=== PATIENT | female | born 1980 | race Caucasian/White ===

== ENCOUNTER 2017-10-08 11:58 | Emergency (ER) | payer MEDICAID, OTHER ==
[~2017-10-08] VITALS: Ht 152.4 cm; Wt 63.6 kg
[~2017-10-08 11:58] MED LIST: ESOM40CA PO; FLO0.4C PO; IBUP-1984 PO; MAGN400T6 PO; NORCO10T PO; ONDA4TAB59 PO; ONDA4TAB6 PO; ONDA4TAB9 PO; PREN-139 PO
[2017-10-08] MEDS ORDERED: ketorolac trometh. 30mg/ml inj. IV ONE (12:30)
[2017-10-08 12:37] LABS: BASOPHILS % (AUTO) 0.2 % (0-1); EOSINOPHILS # (AUTO) 0.3 X10'3 (0-0.9); EOSINOPHILS % (AUTO) 2.2 % (0-6); HEMATOCRIT 36.8 % (35.0-45.0); HEMOGLOBIN 12.8 g/dl (12.0-16.0); LYMPHOCYTES # (AUTO) 1.7 X10'3 (1.1-4.8); MEAN CORPUSCULAR HGB CONC 34.9 % (33.0-36.5); MEAN CORPUSCULAR VOLUME 88.9 FL (78-98); MEAN PLATELET VOLUME 9.5 FL (7.4-10.4); MONOCYTES # (AUTO) 0.9 X10'3 (0-0.9); NEUTROPHILS # (AUTO) 11.3 X10'3 (1.8-7.7); NEUTROPHILS % (AUTO) 79.6 % (42-75); PLATELET COUNT 202 X10'3 (140-440); RED BLOOD COUNT 4.14 X10'6 (4.20-5.60); RED CELL DISTRIBUTION WIDTH 12.8 % (11.5-14.5); WHITE BLOOD COUNT 14.2 X10'3 (4.5-11.0)
[2017-10-08] MEDS ORDERED: morphine 10mg/ml inj. IV ONE (12:45)
[2017-10-08 12:48] LABS: D-DIMER 0.39 MG/L FEU (0-0.50)
[2017-10-08 12:54] LABS: ALANINE AMINOTRANSFERASE 11 U/L (12-78); ALBUMIN 3.1 G/DL (3.4-5.0); ALBUMIN/GLOBULIN RATIO 0.7 (1.1-1.5); ALKALINE PHOSPHATASE 70 IU/L (46-116); ANION GAP 11 (8-16); ASPARTATE AMINO TRANSFERASE 4 U/L (10-37); BILIRUBIN,TOTAL 0.6 MG/DL (0.1-1.0); BLOOD UREA NITROGEN 8 MG/DL (7-18); BUN/CREATININE RATIO 13.3 (6.6-38.0); CALCIUM 8.6 MG/DL (8.5-10.1); CHLORIDE 104 MMOL/L (99-107); GLUCOSE 123 MG/DL (70-104); MAGNESIUM 1.5 MG/DL (1.5-2.4); SODIUM 139 MMOL/L (135-145); TOTAL CARBON DIOXIDE 24.4 MMOL/L (24-32); TOTAL PROTEIN 7.4 G/DL (6.4-8.2); eGFR > 90 ML/MIN
[2017-10-08 12:55] LABS: POTASSIUM 2.7 MMOL/L (3.5-5.1)
[2017-10-08] MEDS ORDERED: potassium Cl 20 mEq SR tablet PO ONE (13:00)
[2017-10-08] MEDS ORDERED: potassium Cl 10 mEq/100mL bag IV ONE (13:00)
[2017-10-08] MEDS ORDERED: potassium 10mEq/100ml NS w/LIDOcaine (10mg/bag) IV ONE ×2 (13:05→14:30)
[2017-10-08] MEDS ORDERED: CYCL-1 PO (13:26)
[2017-10-08] MEDS ORDERED: ROBDML PO (13:26)
[2017-10-08 16:13] VITALS: BP 113/61
== END 2017-10-08 16:22 | disposition home or self-care (01) ==
LOC: ER 11:58
DX: M54.6 Pain in thoracic spine (principal); K21.9 Gastro-esophageal reflux disease without esophagitis; J45.909 Unspecified asthma, uncomplicated; F17.210 Nicotine dependence, cigarettes, uncomplicated; Z88.5 Allergy status to narcotic agent; Z79.899 Other long term (current) drug therapy
CPT/HCPCS: 36415; 71045; 80053; 83735; 84484; 85025; 85379; 93005; 96374; 96375; 96376; 99285; J1885; J2270; J3480; J7030

== ENCOUNTER 2018-07-16 11:45 | Emergency (ER) | payer MEDICAID, OTHER ==
[~2018-07-16] VITALS: Ht 152.4 cm; Wt 71.0 kg
[~2018-07-16 11:45] MED LIST changes: +CYCL-1 PO; +ROBDML PO
[2018-07-16 12:01] VITALS: BP 128/62
== END 2018-07-16 14:25 | disposition left against medical advice (07) ==
LOC: ER 11:45
DX: M25.511 Pain in right shoulder (principal); Z53.21 Procedure and treatment not carried out due to patient leaving prior to being seen by health care provider

== ENCOUNTER 2018-11-25 05:42 | Emergency (ER) | payer MEDICAID, OTHER ==
[~2018-11-25] VITALS: Ht 152.4 cm; Wt 65.0 kg
[2018-11-25 06:02] LABS: BASOPHILS # (AUTO) 0.1 X10'3 (0-0.2); BASOPHILS % (AUTO) 0.6 % (0-1); EOSINOPHILS # (AUTO) 0.2 X10'3 (0-0.9); EOSINOPHILS % (AUTO) 1.6 % (0-6); HEMATOCRIT 44.6 % (35.0-45.0); HEMOGLOBIN 15.3 g/dl (12.0-16.0); LYMPHOCYTES # (AUTO) 2.1 X10'3 (1.1-4.8); LYMPHOCYTES % (AUTO) 14.2 % (21-51); MEAN CORPUSCULAR HEMOGLOBIN 30.9 PG (27.0-31.0); MEAN CORPUSCULAR HGB CONC 34.3 g/dL (33.0-36.5); MEAN CORPUSCULAR VOLUME 90.1 FL (78-98); MEAN PLATELET VOLUME 10.8 FL (7.4-10.4); MONOCYTES % (AUTO) 7.2 % (2-12); NEUTROPHILS # (AUTO) 11.2 X10'3 (1.8-7.7); NEUTROPHILS % (AUTO) 76.4 % (42-75); PLATELET COUNT 197 X10'3 (140-440); RED BLOOD COUNT 4.95 X10'6 (4.20-5.60); RED CELL DISTRIBUTION WIDTH 13.6 % (11.5-14.5); WHITE BLOOD COUNT 14.6 X10'3 (4.5-11.0)
[2018-11-25 06:23] LABS: ALANINE AMINOTRANSFERASE 16 U/L (12-78); ALBUMIN/GLOBULIN RATIO 1.1 (1.1-1.5); ALKALINE PHOSPHATASE 71 IU/L (46-116); ANION GAP 14 (8-16); ASPARTATE AMINO TRANSFERASE 9 U/L (10-37); BILIRUBIN,TOTAL 0.6 MG/DL (0.1-1.0); BLOOD UREA NITROGEN 17 MG/DL (7-18); BUN/CREATININE RATIO 22.7 (6.6-38.0); CALCIUM 9.2 MG/DL (8.5-10.1); CHLORIDE 104 MMOL/L (99-107); CREATININE 0.75 MG/DL (0.40-0.90); GLUCOSE 93 MG/DL (70-104); POTASSIUM 3.6 MMOL/L (3.5-5.1); SODIUM 141 MMOL/L (135-145); TOTAL CARBON DIOXIDE 23.2 MMOL/L (24-32); TOTAL PROTEIN 7.7 G/DL (6.4-8.2); eGFR 87 ML/MIN
[2018-11-25 06:34] LABS: CLARITY,URINE CLEAR (Clear); COLOR,URINE YELLOW (Yellow); GLUCOSE, URINE NEGATIVE (Neg); KETONES,URINE 40 mg/dl (Neg); LEUKOCYTE ESTERASE ,URINE NEGATIVE (Neg); NITRITES, URINE NEGATIVE (Neg); OCCULT BLOOD,URINE NEGATIVE (Neg); PROTEIN,URINE TRACE mg/dl (Neg); UROBILINOGEN,URINE 0.2 E.U/dL (0.2-1.0)
[2018-11-25 06:35] LABS: URINE HCG NEGATIVE (NEG)
[2018-11-25] MEDS ORDERED: normal saline 1000ml 1,000 ML IV ONE (06:37)
[2018-11-25 06:39] LABS: UA COLLECTION TYPE CLN CATCH MIDSTREAM
[2018-11-25 06:40] LABS: BACTERIA,URINE 1+ /HPF (Neg); MUCUS STRANDS FEW /LPF (Neg); RBC,URINE NONE SEEN /HPF (0-2); SQUAMOUS EPITHELIAL CELL,UR MANY /LPF (FEW); WBC,URINE NONE SEEN /HPF (0-4)
[2018-11-25] MEDS ORDERED: morphine 4 MG/ML inj SYRINge IV ONE (06:40)
[2018-11-25] MEDS ORDERED: normal saline 1000ML IV soln IVB ONE ×2 (06:40→09:35)
[2018-11-25] MEDS ORDERED: ketorolac tromethamine 15mg/ml inj. IV ONE (06:40)
[2018-11-25] MEDS ORDERED: proCHLORperazine 10 MG/2 ml inj IV ONE (06:40)
[2018-11-25 06:57] LABS: LIPASE 131 U/L (73-393)
[2018-11-25] MEDS ORDERED: diphenhydrAMINE 50 mg/ml inj IV ONE (07:10)
[2018-11-25 09:13] VITALS: BP 94/40
[2018-11-25 09:31] LABS: TOTAL CELLS COUNTED 100
[2018-11-25 09:32] LABS: TOXIC GRANULATION 1+; TOXIC VACUOLATION 1+
[2018-11-25] MEDS ORDERED: ONDA4TAB6 PO (09:32)
[2018-11-25 09:33] LABS: LARGE PLATELETS FEW; PLATELET ESTIMATE NORMAL
== END 2018-11-25 10:15 | disposition home or self-care (01) ==
LOC: ER 05:43
DX: K52.89 Other specified noninfective gastroenteritis and colitis (principal); R10.31 Right lower quadrant pain; R10.12 Left upper quadrant pain; J45.909 Unspecified asthma, uncomplicated; K21.9 Gastro-esophageal reflux disease without esophagitis; F17.200 Nicotine dependence, unspecified, uncomplicated; F12.90 Cannabis use, unspecified, uncomplicated; Z87.442 Personal history of urinary calculi; Z88.5 Allergy status to narcotic agent; Z88.8 Allergy status to other drugs, medicaments and biological substances; Z79.899 Other long term (current) drug therapy
CPT/HCPCS: 36415; 80053; 81001; 81025; 83690; 85025; 85610; 96374; 96375; 99283; J0780; J1200; J1885; J2270; J7030

== ENCOUNTER 2018-12-10 18:34 | Emergency (ER) | payer OTHER, MEDICAID ==
[~2018-12-10] VITALS: Ht 152.4 cm; Wt 65.9 kg
[~2018-12-10 18:34] MED LIST changes: -PREN-139 PO; +PRENATAL ONE T1 EACH PO
[2018-12-10 18:40] VITALS: BP 118/89
[2018-12-10] MEDS ORDERED: ketorolac tromethamine 15mg/ml inj. IM ONE (19:55)
[2018-12-10] MEDS ORDERED: orphenadrine citrate 60mg/2ml inj. IM ONE (19:55)
[2018-12-10 20:33] LABS: URINE HCG NEGATIVE (NEG)
--- NOTE | 2018-12-10 21:31 | NUR ---
Pt came out of room without C-Collar on, Pt was strongly advised that she should keep the collar on until the CT results have returned. Pt verbalized understanding of the instructions however did not put it back on.
== END 2018-12-10 22:18 | disposition home or self-care (01) ==
LOC: ER 18:35
DX: S13.4XXA Sprain of ligaments of cervical spine, initial encounter (principal); S29.012A Strain of muscle and tendon of back wall of thorax, initial encounter; R51 Headache; K21.9 Gastro-esophageal reflux disease without esophagitis; J45.909 Unspecified asthma, uncomplicated; Z87.442 Personal history of urinary calculi; Z88.5 Allergy status to narcotic agent; Z88.8 Allergy status to other drugs, medicaments and biological substances; Z79.899 Other long term (current) drug therapy; V87.7XXA Person injured in collision between other specified motor vehicles (traffic), initial encounter; Y93.89 Activity, other specified; Y92.481 Parking lot as the place of occurrence of the external cause; Y99.8 Other external cause status
CPT/HCPCS: 72125; 72128; 72131; 81025; 96372; 99284; J1885; J2360

== ENCOUNTER 2019-04-08 12:27 | Emergency (ER) | payer MEDICAID, OTHER ==
[~2019-04-08] VITALS: Ht 152.4 cm; Wt 69.0 kg
[~2019-04-08 12:27] MED LIST changes: +MAGN400T28 PO; -MAGN400T6 PO
[2019-04-08 12:31] VITALS: BP 114/72
[2019-04-08] MEDS ORDERED: AMOX500C2 PO (13:08)
[2019-04-08] MEDS ORDERED: HYDR-3965 PO (13:08)
== END 2019-04-08 13:10 | disposition home or self-care (01) ==
LOC: ER 12:28
DX: K08.89 Other specified disorders of teeth and supporting structures (principal); J45.909 Unspecified asthma, uncomplicated; K21.9 Gastro-esophageal reflux disease without esophagitis; Z87.442 Personal history of urinary calculi; Z98.890 Other specified postprocedural states; Z88.5 Allergy status to narcotic agent; Z88.8 Allergy status to other drugs, medicaments and biological substances; Z79.899 Other long term (current) drug therapy
CPT/HCPCS: 99283

== ENCOUNTER 2019-04-26 15:38 | Emergency (ER) | payer SELFPAY ==
[~2019-04-26] VITALS: Ht 152.4 cm; Wt 68.2 kg
[~2019-04-26 15:38] MED LIST changes: +AMOX500C2 PO; +HYDR-3965 PO
[2019-04-26 15:45] VITALS: BP 114/76
== END 2019-04-26 17:42 | disposition home or self-care (01) ==
LOC: ER 15:39
DX: T18.8XXA Foreign body in other parts of alimentary tract, initial encounter (principal); J45.909 Unspecified asthma, uncomplicated; K21.9 Gastro-esophageal reflux disease without esophagitis; Z87.442 Personal history of urinary calculi; Z98.890 Other specified postprocedural states; Z88.5 Allergy status to narcotic agent; Z88.8 Allergy status to other drugs, medicaments and biological substances; Z79.899 Other long term (current) drug therapy; X58.XXXA Exposure to other specified factors, initial encounter; Y93.89 Activity, other specified; Y92.89 Other specified places as the place of occurrence of the external cause; Y99.8 Other external cause status
CPT/HCPCS: 70360; 71045; 74018; 99283

== ENCOUNTER 2021-01-20 20:57 | Emergency (ER) | payer MEDICAID ==
[~2021-01-20] VITALS: Ht 154.9 cm; Wt 63.6 kg
[~2021-01-20 20:57] MED LIST changes: -AMOX500C2 PO; -HYDR-3965 PO
[2021-01-20] MEDS ORDERED: diphenhydrAMINE 50 mg/ml inj IV ONE (22:10)
[2021-01-20] MEDS ORDERED: normal saline 1000ML IV soln IVB ONE ×2 (22:10)
[2021-01-20] MEDS ORDERED: haloperidol lactate 5mg/ml inj IM ONE (22:10)
[2021-01-20] MEDS ORDERED: ketorolac trometh. 30mg/ml inj. IV ONE (22:10)
[2021-01-20 22:15] LABS: BASOPHILS # (AUTO) 0.2 X10'3 (0-0.2); BASOPHILS % (AUTO) 1.6 % (0-1); EOSINOPHILS # (AUTO) 0.2 X10'3 (0-0.9); EOSINOPHILS % (AUTO) 1.5 % (0-6); HEMATOCRIT 39.5 % (35.0-45.0); HEMOGLOBIN 13.4 g/dl (12.0-16.0); LYMPHOCYTES # (AUTO) 1.5 X10'3 (1.1-4.8); LYMPHOCYTES % (AUTO) 13.5 % (21-51); MEAN CORPUSCULAR HEMOGLOBIN 32.4 PG (27.0-31.0); MEAN CORPUSCULAR VOLUME 95.3 FL (78-98); MEAN PLATELET VOLUME 10.7 FL (7.4-10.4); MONOCYTES # (AUTO) 0.5 X10'3 (0-0.9); MONOCYTES % (AUTO) 4.8 % (2-12); NEUTROPHILS # (AUTO) 8.8 X10'3 (1.8-7.7); NEUTROPHILS % (AUTO) 78.6 % (42-75); PLATELET COUNT 180 X10'3 (140-440); RED BLOOD COUNT 4.15 X10'6 (4.20-5.60); RED CELL DISTRIBUTION WIDTH 13.3 % (11.5-14.5); WHITE BLOOD COUNT 11.2 X10'3 (4.5-11.0)
[2021-01-20 22:31] LABS: ALANINE AMINOTRANSFERASE 18 U/L (12-78); ALBUMIN 3.7 G/DL (3.4-5.0); ALBUMIN/GLOBULIN RATIO 1.1 (1.1-1.5); ALKALINE PHOSPHATASE 64 IU/L (46-116); ANION GAP 14 (8-16); ASPARTATE AMINO TRANSFERASE 11 U/L (10-37); BILIRUBIN,TOTAL 0.6 MG/DL (0.1-1.0); BLOOD UREA NITROGEN 8 MG/DL (7-18); CALCIUM 8.7 MG/DL (8.5-10.1); CHLORIDE 106 MMOL/L (99-107); CREATININE 0.73 MG/DL (0.40-0.90); GLUCOSE 90 MG/DL (70-104); LIPASE < 50 U/L (73-393); POTASSIUM 3.3 MMOL/L (3.5-5.1); SODIUM 142 MMOL/L (135-145); TOTAL CARBON DIOXIDE 22.1 MMOL/L (24-32); TOTAL PROTEIN 7.1 G/DL (6.4-8.2); eGFR 89 ML/MIN
[2021-01-20 22:32] LABS: URINE HCG NEGATIVE (NEG)
[2021-01-20 22:39] LABS: CLARITY,URINE CLEAR (Clear); COLOR,URINE YELLOW (Yellow); GLUCOSE, URINE NEGATIVE (Neg); KETONES,URINE 15 mg/dl (Neg); LEUKOCYTE ESTERASE ,URINE NEGATIVE (Neg); NITRITES, URINE NEGATIVE (Neg); OCCULT BLOOD,URINE NEGATIVE (Neg); PROTEIN,URINE NEGATIVE (Neg); UROBILINOGEN,URINE 0.2 E.U/dL (0.2-1.0)
[2021-01-20 22:41] LABS: UA COLLECTION TYPE NON-SPECIFIED
[2021-01-21] MEDS ORDERED: fentaNYL/PF 50MCG/1 ML 2ML syringe IV ONE ×2 (01:10→02:00)
[2021-01-21] MEDS ORDERED: CefTRIAXone 2gm/D5W 50ml BAG 50 ML IV ONE (01:35)
[2021-01-21] MEDS ORDERED: ondansetron/PF 4mg/2ml inj IV ONE (01:40)
[2021-01-21] MEDS ORDERED: HYDR-3965 PO (02:28)
[2021-01-21] MEDS ORDERED: ONDA4TAB12 PO (02:28)
[2021-01-21] MEDS ORDERED: DOXY100C43 PO (02:28)
[2021-01-21 03:30] VITALS: BP 101/67
== END 2021-01-21 03:31 | disposition home or self-care (01) ==
LOC: ER 20:58
DX: N83.201 Unspecified ovarian cyst, right side (principal); Z87.442 Personal history of urinary calculi; K21.9 Gastro-esophageal reflux disease without esophagitis; J45.909 Unspecified asthma, uncomplicated; Z88.5 Allergy status to narcotic agent; Z88.8 Allergy status to other drugs, medicaments and biological substances; Z79.899 Other long term (current) drug therapy
CPT/HCPCS: 74176; 76856; 80053; 81003; 81025; 83690; 85025; 93976; 96361; 96365; 96372; 96375; 96376; 99285; J0696; J1200; J1630; J1885; J2405; J3010; J7030

== ENCOUNTER 2022-05-26 18:28 | Emergency (ER) | payer MEDICAID ==
[~2022-05-26] VITALS: Ht 149.9 cm; Wt 64.0 kg
[~2022-05-26 18:28] MED LIST changes: -MAGN400T28 PO; +MAGN400T56 PO; +ONDA4TAB12 PO
[2022-05-26 18:58] VITALS: BP 121/77
[2022-05-26 19:41] LABS: URINE HCG NEGATIVE (NEG)
[2022-05-26 19:44] LABS: CLARITY,URINE CLOUDY (Clear); COLOR,URINE YELLOW (Yellow); GLUCOSE, URINE NEGATIVE (Neg); KETONES,URINE TRACE mg/dl (Neg); LEUKOCYTE ESTERASE ,URINE NEGATIVE (Neg); NITRITES, URINE NEGATIVE (Neg); OCCULT BLOOD,URINE LARGE (Neg); PROTEIN,URINE 30 mg/dl (Neg); UROBILINOGEN,URINE 0.2 E.U/dL (0.2-1.0)
[2022-05-26 19:48] LABS: UA COLLECTION TYPE VOIDED
[2022-05-26 19:50] LABS: MEAN CORPUSCULAR VOLUME 91.8 FL (78-98)
[2022-05-26 19:50] LABS: BACTERIA,URINE FEW /HPF (Neg); MUCUS STRANDS MANY /LPF (Neg); RBC,URINE 50-100 /HPF (0-2); WBC,URINE 0-4 /HPF (0-4)
[2022-05-26 19:51] LABS: CAL OXALATE CRYSTALS 3+ /HPF (NEGATIVE); SQUAMOUS EPITHELIAL CELL,UR FEW /LPF (FEW)
[2022-05-26 19:52] LABS: ALANINE AMINOTRANSFERASE 14 U/L (12-78); ALBUMIN 3.6 G/DL (3.4-5.0); ALKALINE PHOSPHATASE 67 IU/L (46-116); ANION GAP 7 (8-16); ASPARTATE AMINO TRANSFERASE 12 U/L (10-37); BASOPHILS # (AUTO) 0.1 X10'3 (0-0.2); BASOPHILS % (AUTO) 0.9 % (0-1); BILIRUBIN,TOTAL 0.4 MG/DL (0.1-1.0); BLOOD UREA NITROGEN 8 MG/DL (7-18); BUN/CREATININE RATIO 11.4 (6.6-38.0); CALCIUM 8.8 MG/DL (8.5-10.1); CHLORIDE 105 MMOL/L (99-107); EOSINOPHILS # (AUTO) 0.2 X10'3 (0-0.9); EOSINOPHILS % (AUTO) 2.4 % (0-6); GLUCOSE 101 MG/DL (70-104); HEMATOCRIT 39.2 % (35.0-45.0); HEMOGLOBIN 13.6 g/dl (12.0-16.0); LYMPHOCYTES # (AUTO) 2.4 X10'3 (1.1-4.8); LYMPHOCYTES % (AUTO) 29.3 % (21-51); MEAN CORPUSCULAR HEMOGLOBIN 31.8 PG (27.0-31.0); MEAN CORPUSCULAR HGB CONC 34.6 g/dL (33.0-36.5); MEAN PLATELET VOLUME 9.8 FL (7.4-10.4); MONOCYTES # (AUTO) 0.5 X10'3 (0-0.9); MONOCYTES % (AUTO) 5.8 % (2-12); NEUTROPHILS # (AUTO) 5.1 X10'3 (1.8-7.7); NEUTROPHILS % (AUTO) 61.6 % (42-75); PLATELET COUNT 221 X10'3 (140-440); POTASSIUM 3.7 MMOL/L (3.5-5.1); RED BLOOD COUNT 4.27 X10'6 (4.20-5.60); RED CELL DISTRIBUTION WIDTH 12.9 % (11.5-14.5); SODIUM 142 MMOL/L (135-145); TOTAL CARBON DIOXIDE 30.3 MMOL/L (24-32); TOTAL PROTEIN 7.1 G/DL (6.4-8.2); WHITE BLOOD COUNT 8.2 X10'3 (4.5-11.0); eGFR > 90 ML/MIN
== END 2022-05-27 00:24 | disposition left against medical advice (07) ==
LOC: ER 18:28
DX: N20.0 Calculus of kidney (principal); Z53.21 Procedure and treatment not carried out due to patient leaving prior to being seen by health care provider
CPT/HCPCS: 80053; 81001; 81025; 85025

== ENCOUNTER 2023-01-02 16:45 | Emergency (ER) | payer MEDICAID ==
[~2023-01-02] VITALS: Ht 149.9 cm; Wt 63.6 kg
[2023-01-02 17:10] LABS: HEMATOCRIT 45.1 % (35.0-45.0); MEAN PLATELET VOLUME 9.8 FL (7.4-10.4); WHITE BLOOD COUNT 13.8 X10'3 (4.5-11.0)
[2023-01-02 17:13] LABS: BASOPHILS # (AUTO) 0.1 X10'3 (0-0.2); BASOPHILS % (AUTO) 0.5 % (0-1); EOSINOPHILS # (AUTO) 0.1 X10'3 (0-0.9); EOSINOPHILS % (AUTO) 0.4 % (0-6); HEMOGLOBIN 15.1 g/dl (12.0-16.0); LYMPHOCYTES # (AUTO) 0.7 X10'3 (1.1-4.8); LYMPHOCYTES % (AUTO) 4.9 % (21-51); MEAN CORPUSCULAR HEMOGLOBIN 31.7 PG (27.0-31.0); MEAN CORPUSCULAR HGB CONC 33.6 g/dL (33.0-36.5); MEAN CORPUSCULAR VOLUME 94.3 FL (78-98); MONOCYTES # (AUTO) 0.4 X10'3 (0-0.9); MONOCYTES % (AUTO) 2.6 % (2-12); NEUTROPHILS # (AUTO) 12.7 X10'3 (1.8-7.7); NEUTROPHILS % (AUTO) 91.6 % (42-75); PLATELET COUNT 237 X10'3 (140-440); RED BLOOD COUNT 4.78 X10'6 (4.20-5.60); RED CELL DISTRIBUTION WIDTH 13.1 % (11.5-14.5)
[2023-01-02 17:26] LABS: ALANINE AMINOTRANSFERASE 13 U/L (12-78); ALBUMIN 4.1 G/DL (3.4-5.0); ALBUMIN/GLOBULIN RATIO 1.1 (1.1-1.5); ALKALINE PHOSPHATASE 74 IU/L (46-116); ANION GAP 11 (8-16); ASPARTATE AMINO TRANSFERASE 6 U/L (10-37); BILIRUBIN,TOTAL 0.9 MG/DL (0.1-1.0); BLOOD UREA NITROGEN 12 MG/DL (7-18); BUN/CREATININE RATIO 14.1 (10.0-20.0); CALCIUM 9.1 MG/DL (8.5-10.1); CHLORIDE 102 MMOL/L (99-107); CREATININE 0.85 MG/DL (0.40-0.90); GLUCOSE 131 MG/DL (70-104); LIPASE 62 U/L (73-393); POTASSIUM 3.9 MMOL/L (3.5-5.1); SODIUM 138 MMOL/L (135-145); TOTAL CARBON DIOXIDE 24.6 MMOL/L (24-32); TOTAL PROTEIN 7.9 G/DL (6.4-8.2); eGFR 74 ML/MIN
[2023-01-02] MEDS ORDERED: ondansetron/PF 4mg/2ml inj IV ONE ×2 (17:30→20:55)
[2023-01-02] MEDS ORDERED: morphine 4 MG/ML inj SYRINge IV ONE ×2 (17:30→20:55)
[2023-01-02 17:38] LABS: URINE HCG NEGATIVE (NEG)
[2023-01-02 17:39] LABS: CLARITY,URINE SLIGHTLY CLOUDY (Clear); COLOR,URINE YELLOW (Yellow); GLUCOSE, URINE NEGATIVE (Neg); KETONES,URINE NEGATIVE (Neg); LEUKOCYTE ESTERASE ,URINE NEGATIVE (Neg); NITRITES, URINE NEGATIVE (Neg); OCCULT BLOOD,URINE MODERATE (Neg); PROTEIN,URINE NEGATIVE (Neg); UROBILINOGEN,URINE 0.2 E.U/dL (0.2-1.0)
[2023-01-02] MEDS ORDERED: normal saline 1000ml 1,000 ML IV ONE (17:40)
[2023-01-02 17:47] LABS: UA COLLECTION TYPE CLN CATCH MIDSTREAM
[2023-01-02 17:49] LABS: BACTERIA,URINE FEW /HPF (Neg); MUCUS STRANDS FEW /LPF (Neg); RBC,URINE NONE SEEN /HPF (0-2); SQUAMOUS EPITHELIAL CELL,UR FEW /LPF (FEW); WBC,URINE 0-4 /HPF (0-4)
[2023-01-02] MEDS ORDERED: ketorolac tromethamine 15mg/ml inj. IM ONE (18:35)
[2023-01-02 21:04] VITALS: BP 119/69
== END 2023-01-02 22:04 | disposition short-term general hospital (02) ==
LOC: ER 16:47
DX: R10.31 Right lower quadrant pain (principal); R11.2 Nausea with vomiting, unspecified; R19.7 Diarrhea, unspecified; K21.9 Gastro-esophageal reflux disease without esophagitis; J45.909 Unspecified asthma, uncomplicated; Z87.448 Personal history of other diseases of urinary system; Z88.5 Allergy status to narcotic agent; Z88.8 Allergy status to other drugs, medicaments and biological substances; Z79.899 Other long term (current) drug therapy; Z79.1 Long term (current) use of non-steroidal anti-inflammatories (NSAID); Z79.2 Long term (current) use of antibiotics
CPT/HCPCS: 36415; 74176; 76830; 76856; 80053; 81001; 81025; 83690; 85025; 93976; 96361; 96374; 96375; 96376; 99285; J1885; J2270; J2405; J7030

== ENCOUNTER 2023-04-18 06:17 | Inpatient (IN) | payer MEDICAID ==
[~2023-04-18] VITALS: Ht 152.4 cm; Wt 63.6 kg
[2023-04-18] MEDS ORDERED: LORazepam 2 mg/ml vial IV ONE ×2 (07:00→09:40)
[2023-04-18] MEDS ORDERED: normal saline 1000ML IV soln IVB ONE ×2 (07:00→07:25)
[2023-04-18] MEDS ORDERED: morphine 4 MG/ML inj SYRINge IV ONE ×2 (07:00→09:40)
[2023-04-18] MEDS ORDERED: famotidine/PF 10 mg/ml inj IV ONE (07:00)
[2023-04-18] MEDS ORDERED: ondansetron/PF 4mg/2ml inj IV ONE (07:00)
[2023-04-18] MEDS ORDERED: ketorolac tromethamine 15mg/ml inj. IV ONE (07:00)
[2023-04-18 07:44] LABS: BASOPHILS # (AUTO) 0.1 X10'3 (0-0.2); BASOPHILS % (AUTO) 0.5 % (0-1); EOSINOPHILS % (AUTO) 0.2 % (0-6); HEMATOCRIT 37.7 % (35.0-45.0); HEMOGLOBIN 12.8 g/dl (12.0-16.0); LYMPHOCYTES # (AUTO) 0.9 X10'3 (1.1-4.8); MEAN CORPUSCULAR HEMOGLOBIN 32.1 PG (27.0-31.0); MEAN CORPUSCULAR HGB CONC 33.8 g/dL (33.0-36.5); MEAN CORPUSCULAR VOLUME 94.9 FL (78-98); MEAN PLATELET VOLUME 9.5 FL (7.4-10.4); MONOCYTES # (AUTO) 1.3 X10'3 (0-0.9); MONOCYTES % (AUTO) 7.2 % (2-12); NEUTROPHILS # (AUTO) 15.8 X10'3 (1.8-7.7); NEUTROPHILS % (AUTO) 87.1 % (42-75); PLATELET COUNT 186 X10'3 (140-440); RED BLOOD COUNT 3.98 X10'6 (4.20-5.60); RED CELL DISTRIBUTION WIDTH 13.9 % (11.5-14.5); WHITE BLOOD COUNT 18.2 X10'3 (4.5-11.0)
[2023-04-18 07:52] LABS: ALANINE AMINOTRANSFERASE 15 U/L (12-78); ALBUMIN 3.3 G/DL (3.4-5.0); ALKALINE PHOSPHATASE 71 IU/L (46-116); ANION GAP 10 (8-16); ASPARTATE AMINO TRANSFERASE 11 U/L (10-37); BLOOD UREA NITROGEN 15 MG/DL (7-18); BUN/CREATININE RATIO 18.5 (10.0-20.0); CALCIUM 8.6 MG/DL (8.5-10.1); CHLORIDE 104 MMOL/L (99-107); CREATININE 0.81 MG/DL (0.40-0.90); GLUCOSE 98 MG/DL (70-104); LIPASE 54 U/L (73-393); SODIUM 139 MMOL/L (135-145); TOTAL CARBON DIOXIDE 25.1 MMOL/L (24-32); TOTAL PROTEIN 6.5 G/DL (6.4-8.2); eCRCL 66 ML/MIN; eGFR 78 ML/MIN
[2023-04-18] MEDS ORDERED: iohexol 300mg/ml 100ml inj. ONE (08:09)
[2023-04-18 08:52] LABS: APTT 27 SECONDS (22-32); INR 0.9 INR; PROTHROMBIN TIME 9.9 SECONDS (9.0-12.0)
[2023-04-18 09:13] LABS: BETA HCG,QUANTITATIVE < 1.0 mIU/ml; ETHANOL < 10 MG/DL (<10)
[2023-04-18] MEDS ORDERED: ondansetron 4mg rapidly disintigrating tab PO ONE (09:40)
[2023-04-18] MEDS ORDERED: metroNIDAZOLE-Flagyl 750mg/NS 150 ML IV ONE (09:50)
[2023-04-18] MEDS ORDERED: levoFLOXACIN-Levaquin 750MG/D5 150 ML IV ONE (09:51)
[2023-04-18 10:01] LABS: URINE HCG NEGATIVE (NEG)
[2023-04-18 10:03] LABS: BILIRUBIN,URINE NEGATIVE (Neg); CLARITY,URINE SLIGHTLY CLOUDY (Clear); COLOR,URINE YELLOW (Yellow); GLUCOSE, URINE NEGATIVE (Neg); KETONES,URINE NEGATIVE (Neg); LEUKOCYTE ESTERASE ,URINE NEGATIVE (Neg); NITRITES, URINE NEGATIVE (Neg); OCCULT BLOOD,URINE NEGATIVE (Neg); PH,URINE 5.5 (4.8-8.0); PROTEIN,URINE NEGATIVE (Neg); UROBILINOGEN,URINE 0.2 E.U/dL (0.2-1.0)
[2023-04-18 10:08] LABS: UA COLLECTION TYPE OTHER
[2023-04-18 10:13] LABS: BACTERIA,URINE 2+ /HPF (Neg); MUCUS STRANDS FEW /LPF (Neg); RBC,URINE 0-2 /HPF (0-2); SQUAMOUS EPITHELIAL CELL,UR MANY /LPF (FEW)
[2023-04-18 10:14] LABS: AMORPHOUS URATES 1+; CAL OXALATE CRYSTALS 1+ /HPF (NEGATIVE); TRANSITIONAL EPI CELLS,URINE MODERATE /HPF
[2023-04-18 10:49] LABS: URINE AMPHETAMINE SCREEN NEGATIVE (Neg); URINE BARBITUATE SCREEN NEGATIVE (Neg); URINE BENZODIAZEPINES SCREEN NEGATIVE (Neg); URINE CANNABINOID SCREEN POSITIVE (Neg); URINE COCAINE SCREEN POSITIVE (Neg); URINE METHADONE SCREEN NEGATIVE (Neg); URINE OPIATE SCREEN POSITIVE (Neg); URINE PHENCYCLIDINE SCREEN NEGATIVE (Neg)
[2023-04-18] MEDS: normal saline 1000ml 1,000 ML IV SCH (11:40)
[2023-04-18] MEDS ORDERED: potassium Cl 40MEQ/1/2NS 520ml 520 ML IV PRN (11:40)
[2023-04-18] MEDS ORDERED: acetaminophen 325mg tablet PO PRN ×2 (11:40)
[2023-04-18] MEDS ORDERED: magnesium 4gm in 100ml NS 100 ML IV PRN (11:40)
[2023-04-18] MEDS ORDERED: magnesium Cl slow-release 64mg tablet PO PRN (11:40)
[2023-04-18] MEDS ORDERED: magnesium 2GM in 50ml NS 50 ML IV PRN (11:40)
[2023-04-18] MEDS ORDERED: potassium Cl 20 mEq SR tablet PO PRN ×2 (11:40)
[2023-04-18] MEDS ORDERED: HYDROcodone/acetaminophen 5mg/325mg tablet PO PRN (11:40)
[2023-04-18] MEDS ORDERED: morphine 2 MG/ML inj. syringe IV PRN ×2 (11:40)
[2023-04-18] MEDS ORDERED: IBUP-1984 PO (13:12)
[2023-04-18] MEDS ORDERED: ACET325T55 PO (13:12)
--- NOTE | 2023-04-18 15:15 | NUR ---
NGT placement attempted and pt unable to tolerate. Pt requesting pain med and asking for numbing agent for tube placement. Dr. Borja paged for request
[2023-04-18] MEDS ORDERED: LIDOcaine 2% 10ml TOPICAL JELLY (Urojet) MM ONE (15:40)
[2023-04-18] MEDS ORDERED: HYDROmorphone/PF 0.2 MG/ML SYRINGE IV PRN (15:45)
--- NOTE | 2023-04-18 15:45 | NUR ---
Received VO for additional pain relief and order for lidocaine urojet jelly for NGT placement.
[2023-04-18] MEDS ORDERED: morphine 2 MG/ML inj. syringe IV ONE (15:55)
--- NOTE | 2023-04-18 15:58 | NUR ---
Report called and given to ROSA MARIA Boggs, pt going to bed [id number]
[2023-04-18] MEDS ORDERED: LidoCAINE 2% Topical Jelly 11mL syringe TOP ONE (16:00)
[2023-04-18 17:30] VITALS: BP 115/72; PULSE 110; RESP 18; TEMP 100.9; O2SAT 100
[2023-04-18] MEDS: HYDROmorphone inj. 0.5 MG/0.5 ML DISP.SYRIN IV PRN ×2 (17:39→21:27)
--- NOTE | 2023-04-18 18:30 | NUR ---
Patient in room [facility] 4011. I have received report from ROSA MARIA Hoff and had the opportunity to ask questions and assume patient care.
[2023-04-18 18:43] VITALS: TEMP 100
[2023-04-18] MEDS: piperacillin/tazo 3.375gm/50ml 50 ML IV SCH (18:44)
[2023-04-18] MEDS ORDERED: potassium Cl 40MEQ/1/2NS 520ml 520 ML IV ONE ×2 (19:00→22:00)
[2023-04-18] MEDS: enoxaparin 40mg/0.4ml syringe SQ SCH (19:32)
[2023-04-18] MEDS: HYDROcodone/acetaminophen 10/325mg tab PO PRN (19:33)
[2023-04-18 20:00] VITALS: RESP 18
[2023-04-18] MEDS: diatr meglu/diatrizoate 30ml oral sol.-(3 dose) bottle PO SCH (21:21)
[2023-04-18 22:00] VITALS: BP 114/76; PULSE 119; RESP 18; TEMP 98.1; O2SAT 97
[2023-04-19] MEDS: piperacillin/tazo 3.375gm/50ml 50 ML IV SCH ×4 (00:13→23:41)
[2023-04-19] MEDS: normal saline 1000ml 1,000 ML IV SCH ×4 (00:13→20:37)
[2023-04-19] MEDS: HYDROcodone/acetaminophen 10/325mg tab PO PRN ×6 (00:15→23:40)
[2023-04-19] MEDS ORDERED: potassium Cl 40MEQ/1/2NS 520ml 520 ML IV ONE (00:30)
[2023-04-19] MEDS: HYDROmorphone inj. 0.5 MG/0.5 ML DISP.SYRIN IV PRN ×5 (02:00→20:35)
[2023-04-19 06:00] VITALS: BP 124/93; PULSE 112; RESP 18; TEMP 99.7; O2SAT 97
--- NOTE | 2023-04-19 06:24 | NUR ---
Problems reprioritized. Patient report given, questions answered & plan of care reviewed with ROSA MARIA Hoff.
[2023-04-19] MEDS: diatr meglu/diatrizoate 30ml oral sol.-(3 dose) bottle PO SCH ×2 (07:22→21:00)
[2023-04-19] MEDS: ondansetron/PF 4mg/2ml inj IV PRN (07:29)
[2023-04-19 08:08] LABS: BASOPHILS % (AUTO) 0.1 % (0-1); EOSINOPHILS # (AUTO) 0.1 X10'3 (0-0.9); EOSINOPHILS % (AUTO) 0.4 % (0-6); HEMATOCRIT 36.5 % (35.0-45.0); HEMOGLOBIN 12.2 g/dl (12.0-16.0); LYMPHOCYTES # (AUTO) 0.8 X10'3 (1.1-4.8); LYMPHOCYTES % (AUTO) 4.6 % (21-51); MEAN CORPUSCULAR HEMOGLOBIN 31.7 PG (27.0-31.0); MEAN CORPUSCULAR HGB CONC 33.5 g/dL (33.0-36.5); MEAN CORPUSCULAR VOLUME 94.6 FL (78-98); MEAN PLATELET VOLUME 10.1 FL (7.4-10.4); MONOCYTES # (AUTO) 0.4 X10'3 (0-0.9); MONOCYTES % (AUTO) 2.5 % (2-12); NEUTROPHILS # (AUTO) 15.7 X10'3 (1.8-7.7); NEUTROPHILS % (AUTO) 92.4 % (42-75); PLATELET COUNT 153 X10'3 (140-440); RED BLOOD COUNT 3.86 X10'6 (4.20-5.60); RED CELL DISTRIBUTION WIDTH 13.5 % (11.5-14.5)
[2023-04-19 08:32] LABS: ALANINE AMINOTRANSFERASE 11 U/L (12-78); ALBUMIN 2.6 G/DL (3.4-5.0); ALBUMIN/GLOBULIN RATIO 0.8 (1.1-1.5); ALKALINE PHOSPHATASE 62 IU/L (46-116); ANION GAP 9 (8-16); ASPARTATE AMINO TRANSFERASE 11 U/L (10-37); BILIRUBIN,TOTAL 0.7 MG/DL (0.1-1.0); BLOOD UREA NITROGEN 6 MG/DL (7-18); BUN/CREATININE RATIO 9.2 (10.0-20.0); CHLORIDE 104 MMOL/L (99-107); CREATININE 0.65 MG/DL (0.40-0.90); GLUCOSE 89 MG/DL (70-104); POTASSIUM 3.6 MMOL/L (3.5-5.1); SODIUM 134 MMOL/L (135-145); TOTAL CARBON DIOXIDE 20.6 MMOL/L (24-32); TOTAL PROTEIN 5.9 G/DL (6.4-8.2); eCRCL 82 ML/MIN; eGFR > 90 ML/MIN
[2023-04-19 10:00] VITALS: BP 127/83; PULSE 119; RESP 20; TEMP 99.3; O2SAT 96
[2023-04-19] MEDS ORDERED: iohexol 300mg/ml 100ml inj. ONE (11:22)
--- NOTE | 2023-04-19 13:56 | NUR ---
Rn got a call from Dr Oconnor after he read CT scan, reported patient has acute diverticulitis and samll micro perforation found in CT. stated he is going to send over report. RN called Dr Merritt cell phone to make aware of findings. Woman who answered said he will have to call back due to being busy at the moment. RN then paged Magu to make aware of CT verbal report
[2023-04-19 18:00] VITALS: BP 108/70; PULSE 101; RESP 17; TEMP 98.7; O2SAT 96
--- NOTE | 2023-04-19 18:28 | NUR ---
Patient in room [facility] 4011. I have received report from ROSA MARIA Hoff and had the opportunity to ask questions and assume patient care.
[2023-04-19 20:00] VITALS: RESP 16; O2SAT 97
[2023-04-19] MEDS: enoxaparin 40mg/0.4ml syringe SQ SCH (20:36)
[2023-04-19 22:00] VITALS: BP 121/78; PULSE 98; RESP 16; TEMP 97.5; O2SAT 97
[2023-04-20] MEDS: HYDROmorphone inj. 0.5 MG/0.5 ML DISP.SYRIN IV PRN ×5 (01:03→22:07)
[2023-04-20] MEDS: diphenhydrAMINE 25mg capsule PO PRN ×3 (01:47→19:22)
[2023-04-20] MEDS: normal saline 1000ml 1,000 ML IV SCH ×2 (05:29→16:13)
[2023-04-20] MEDS: ondansetron/PF 4mg/2ml inj IV PRN (05:58)
[2023-04-20 06:00] VITALS: BP 124/82; PULSE 89; RESP 16; TEMP 98.3; O2SAT 95
[2023-04-20 06:31] LABS: BASOPHILS % (AUTO) 0.2 % (0-1); EOSINOPHILS # (AUTO) 0.3 X10'3 (0-0.9); EOSINOPHILS % (AUTO) 2.6 % (0-6); HEMATOCRIT 38.4 % (35.0-45.0); HEMOGLOBIN 12.8 g/dl (12.0-16.0); LYMPHOCYTES % (AUTO) 7.9 % (21-51); MEAN CORPUSCULAR HEMOGLOBIN 32.1 PG (27.0-31.0); MEAN CORPUSCULAR HGB CONC 33.5 g/dL (33.0-36.5); MEAN CORPUSCULAR VOLUME 95.8 FL (78-98); MEAN PLATELET VOLUME 10.1 FL (7.4-10.4); MONOCYTES # (AUTO) 0.5 X10'3 (0-0.9); MONOCYTES % (AUTO) 3.8 % (2-12); NEUTROPHILS # (AUTO) 10.7 X10'3 (1.8-7.7); NEUTROPHILS % (AUTO) 85.5 % (42-75); PLATELET COUNT 157 X10'3 (140-440); RED CELL DISTRIBUTION WIDTH 13.7 % (11.5-14.5); WHITE BLOOD COUNT 12.5 X10'3 (4.5-11.0)
--- NOTE | 2023-04-20 06:32 | NUR ---
Problems reprioritized. Patient report given, questions answered & plan of care reviewed with ROSA MARIA Guillaume.
[2023-04-20 06:49] LABS: ALANINE AMINOTRANSFERASE 13 U/L (12-78); ALBUMIN 2.7 G/DL (3.4-5.0); ALBUMIN/GLOBULIN RATIO 0.7 (1.1-1.5); ALKALINE PHOSPHATASE 71 IU/L (46-116); ANION GAP 12 (8-16); ASPARTATE AMINO TRANSFERASE 12 U/L (10-37); BILIRUBIN,TOTAL 0.7 MG/DL (0.1-1.0); BLOOD UREA NITROGEN 6 MG/DL (7-18); BUN/CREATININE RATIO 8.1 (10.0-20.0); CALCIUM 8.8 MG/DL (8.5-10.1); CHLORIDE 103 MMOL/L (99-107); CREATININE 0.74 MG/DL (0.40-0.90); GLUCOSE 91 MG/DL (70-104); POTASSIUM 3.7 MMOL/L (3.5-5.1); SODIUM 137 MMOL/L (135-145); TOTAL CARBON DIOXIDE 22.1 MMOL/L (24-32); TOTAL PROTEIN 6.8 G/DL (6.4-8.2); eCRCL 72 ML/MIN; eGFR 86 ML/MIN
[2023-04-20] MEDS: piperacillin/tazo 3.375gm/50ml 50 ML IV SCH (07:30)
[2023-04-20] MEDS: HYDROcodone/acetaminophen 10/325mg tab PO PRN ×3 (07:31→19:20)
[2023-04-20 08:00] VITALS: RESP 16; O2SAT 96
[2023-04-20 09:59] VITALS: BP 121/79; PULSE 97; RESP 15; TEMP 92.7; O2SAT 96
[2023-04-20] MEDS ORDERED: HYDROmorphone/PF 0.2 MG/ML SYRINGE IV PRN (15:45)
[2023-04-20] MEDS: ciprofloxacin lact 400MG/200ML 200 ML IV SCH ×2 (16:06→19:24)
[2023-04-20 18:00] VITALS: BP 118/74; PULSE 101; RESP 14; TEMP 96.9; O2SAT 94
[2023-04-20] MEDS: enoxaparin 40mg/0.4ml syringe SQ SCH (19:13)
[2023-04-20] MEDS: metroNIDAZOLE-Flagyl 500mg/NS 100 ML IV SCH (19:13)
[2023-04-20 20:00] VITALS: RESP 14; O2SAT 95
[2023-04-20 22:00] VITALS: BP 118/83; PULSE 90; RESP 14; TEMP 98.4; O2SAT 98
[2023-04-21] MEDS: HYDROcodone/acetaminophen 10/325mg tab PO PRN ×2 (00:33→08:41)
[2023-04-21] MEDS: diphenhydrAMINE 25mg capsule PO PRN ×2 (01:03→08:45)
--- NOTE | 2023-04-21 01:49 | NUR ---
pt ambulated 150ft in hallway.
--- NOTE | 2023-04-21 03:00 | NUR ---
Patient in room [facility] 4011. I have received report from honorio COVINGTON and had the opportunity to ask questions and assume patient care.
[2023-04-21] MEDS: HYDROmorphone inj. 0.5 MG/0.5 ML DISP.SYRIN IV PRN (04:02)
[2023-04-21 06:00] VITALS: BP 120/83; PULSE 86; RESP 16; TEMP 99.1; O2SAT 97
[2023-04-21 06:18] LABS: BASOPHILS % (AUTO) 0.3 % (0-1); EOSINOPHILS # (AUTO) 0.4 X10'3 (0-0.9); EOSINOPHILS % (AUTO) 5.4 % (0-6); HEMATOCRIT 30.3 % (35.0-45.0); HEMOGLOBIN 10.4 g/dl (12.0-16.0); LYMPHOCYTES # (AUTO) 0.9 X10'3 (1.1-4.8); LYMPHOCYTES % (AUTO) 12.3 % (21-51); MEAN CORPUSCULAR HEMOGLOBIN 32.4 PG (27.0-31.0); MEAN CORPUSCULAR HGB CONC 34.3 g/dL (33.0-36.5); MEAN CORPUSCULAR VOLUME 94.3 FL (78-98); MEAN PLATELET VOLUME 9.4 FL (7.4-10.4); MONOCYTES # (AUTO) 0.5 X10'3 (0-0.9); MONOCYTES % (AUTO) 6.8 % (2-12); NEUTROPHILS # (AUTO) 5.7 X10'3 (1.8-7.7); NEUTROPHILS % (AUTO) 75.2 % (42-75); PLATELET COUNT 140 X10'3 (140-440); RED BLOOD COUNT 3.22 X10'6 (4.20-5.60); RED CELL DISTRIBUTION WIDTH 13.4 % (11.5-14.5); WHITE BLOOD COUNT 7.6 X10'3 (4.5-11.0)
[2023-04-21 06:32] LABS: ALANINE AMINOTRANSFERASE 9 U/L (12-78); ALBUMIN 2.2 G/DL (3.4-5.0); ALBUMIN/GLOBULIN RATIO 0.7 (1.1-1.5); ALKALINE PHOSPHATASE 48 IU/L (46-116); ANION GAP 7 (8-16); ASPARTATE AMINO TRANSFERASE 9 U/L (10-37); BILIRUBIN,TOTAL 0.5 MG/DL (0.1-1.0); BLOOD UREA NITROGEN 2 MG/DL (7-18); BUN/CREATININE RATIO 4.1 (10.0-20.0); CHLORIDE 108 MMOL/L (99-107); CREATININE 0.49 MG/DL (0.40-0.90); GLUCOSE 100 MG/DL (70-104); POTASSIUM 3.1 MMOL/L (3.5-5.1); SODIUM 139 MMOL/L (135-145); TOTAL CARBON DIOXIDE 24.1 MMOL/L (24-32); TOTAL PROTEIN 5.5 G/DL (6.4-8.2); eCRCL 109 ML/MIN; eGFR > 90 ML/MIN
--- NOTE | 2023-04-21 06:59 | NUR ---
Problems reprioritized. Patient report given, questions answered & plan of care reviewed with ROSA MARIA Bustillos.
[2023-04-21] MEDS: ciprofloxacin lact 400MG/200ML 200 ML IV SCH (08:39)
[2023-04-21] MEDS ORDERED: CIPR-259 PO (08:41)
[2023-04-21] MEDS ORDERED: METR-159 PO (08:41)
[2023-04-21 09:41] VITALS: RESP 16
[2023-04-21] MEDS ORDERED: DOCU-148 PO (10:08)
[2023-04-21] MEDS: metroNIDAZOLE-Flagyl 500mg/NS 100 ML IV SCH (10:39)
--- NOTE | 2023-04-21 10:52 | NUR ---
patient medicated for pain x1 with mod relief, patient became extremely agitated following Visit by Dr tidwell, stating that she "looked at her wrong" and didnt like the way she spoke to her. Staff had observed Dr tidwell to be professional and courteous. patient stated she was going to leave and continued to be very upset despite much time spent listening to patient. patient was positive for fentanyl, cocaine,cannaboids and opiates on admit. When asked about this , with regards withdrawals, patient denied taking drugs outside of hospital. will continue to monitor and endeavor to reassure patient.
--- NOTE | 2023-04-21 13:08 | NUR ---
Patient remains agitated and hostile towards staff, trying to record conversations. All Dc instructions given to patient . patient DC to lobby,Stated that ride is coming.
[2023-04-21] MEDS ORDERED: POTA-207 PO (15:47)
[2023-04-21] MEDS ORDERED: ACET-1008 PO (15:48)
== END 2023-04-21 13:10 | disposition home or self-care (01) | DRG 244 ==
LOC: ER 06:18 → ED HOLD 11:44 → EDBEDREQ 14:50 → ORTHO 4S 16:50
PROVIDERS: ADMIT Internal Medicine; ATTEND Internal Medicine
PROC: 0D9670Z Drainage of Stomach with Drainage Device, Via Natural or Artificial Opening (ICD-10-PCS; principal; 2023-04-18)
PROC: BW211ZZ Computerized Tomography (CT Scan) of Abdomen and Pelvis using Low Osmolar Contrast (ICD-10-PCS; 2023-04-18)
PROC: BW211ZZ Computerized Tomography (CT Scan) of Abdomen and Pelvis using Low Osmolar Contrast (ICD-10-PCS; 2023-04-19)
DX: K57.32 Diverticulitis of large intestine without perforation or abscess without bleeding (principal); K56.600 Partial intestinal obstruction, unspecified as to cause; M32.9 Systemic lupus erythematosus, unspecified; E87.6 Hypokalemia; G89.29 Other chronic pain; F17.210 Nicotine dependence, cigarettes, uncomplicated; J45.909 Unspecified asthma, uncomplicated; K21.9 Gastro-esophageal reflux disease without esophagitis; F12.10 Cannabis abuse, uncomplicated; Z87.442 Personal history of urinary calculi; Z88.5 Allergy status to narcotic agent; Z88.8 Allergy status to other drugs, medicaments and biological substances; Z79.899 Other long term (current) drug therapy; Z71.6 Tobacco abuse counseling; Z71.51 Drug abuse counseling and surveillance of drug abuser
CPT/HCPCS: 36415; 71045; 74177; 76830; 76856; 80053; 80305; 80320; 81001; 81025; 83605; 83690; 84145; 84484; 84702; 85025; 85610; 85651; 85730; 87040; 87081; 93005; 93976; 99285; A6258; A6446; G0378; J0744; J1170; J1650; J1885; J1956; J2060; J2270; J2405; J2543; J3480; J3490; J7030; Q0163; Q9963; Q9967

== ENCOUNTER 2024-08-18 19:11 | Emergency (ER) | payer MEDICAID ==
[~2024-08-18] VITALS: Ht 152.4 cm; Wt 67.0 kg
[~2024-08-18 19:11] MED LIST changes: +ACET325T55 PO; -CYCL-1 PO; +DOCU-148 PO; -ESOM40CA PO; -FLO0.4C PO; -IBUP-1984 PO; -MAGN400T56 PO; -NORCO10T PO; -ONDA4TAB12 PO; -ONDA4TAB59 PO; -ONDA4TAB6 PO; -ONDA4TAB9 PO; -PRENATAL ONE T1 EACH PO; -ROBDML PO
[2024-08-18 20:01] VITALS: BP 123/82; PULSE 84; RESP 16; TEMP 98.7; O2SAT 99
== END 2024-08-18 21:06 | disposition left against medical advice (07) ==
LOC: ER 19:11
DX: H57.11 Ocular pain, right eye (principal); Z53.21 Procedure and treatment not carried out due to patient leaving prior to being seen by health care provider